=== PATIENT | female | born 1965 | race Caucasian/White ===

== ENCOUNTER 2023-02-14 09:42 | Emergency (ER) | payer OTHER ==
--- NOTE | 2023-02-14 09:50 | ERPHSYRPT ---
- History of Present Illness Time Seen by Provider: 02/14/23 09:50 Source: patient Exam Limitations: no limitations Physician History: This is an overweight 57-year-old white female patient who presents with a right fifth toe that is inflamed and tender after stubbing it 1 week ago. She has tried elevation, ice, Tylenol and ibuprofen medication. She still having the swelling and pain that she rates at a 7 out of 10. She has not seen her primary care provider. Her has seen Dr. Gunn in the past. She may choose to see this pre sales technical consultant. However I did offer her to see Dr. Michael depending on the findings on the x-ray of the right foot. Method of Injury: other (Patient stubbed her toe approximately 1 week ago) Occurred: last week Quality: constant, aching Severity of Pain-Max: moderate Severity of Pain-Current: moderate Lower Extremities Pain: 5th toe: right Modifying Factors: Improves With: movement Associated Symptoms: other (Hurts to put weight on it) Allergies/Adverse Reactions: No Known Drug Allergies Allergy (Unverified 02/14/23 10:06) Home Medications: Lisinopril 10 mg [Zestril 10 MG] 10 mg PO DAILY 02/14/23 [History] Travel Risk - International Travel Have you traveled outside of the country in past 3 weeks: No - Coronavirus Screening Are you exhibiting any of the following symptoms?: No Close contact with a COVID-19 positive Pt in past 14-21 Days: No - Review of Systems Constitutional: No Symptoms Eyes: No Symptoms Ears, Nose, & Throat: No Symptoms Respiratory: No Symptoms Cardiac: No Symptoms Abdominal/Gastrointestinal: No Symptoms Genitourinary Symptoms: No Symptoms Musculoskeletal: Injury (Right fifth toe) Skin: No Symptoms Neurological: No Symptoms Psychological: No Symptoms Endocrine: No Symptoms Hematologic/Lymphatic: No Symptoms Immunological/Allergic: No Symptoms All Other Systems: Reviewed and Negative - Past Medical History Pertinent Past Medical History: Yes - Past Surgical History Past Surgical History: Yes - Nursing Vital Signs Nursing Vital Signs: Initial Vital Signs Pulse Rate 87 02/14/23 10:06 Respiratory Rate 18 02/14/23 10:06 Blood Pressure 133/93 02/14/23 10:06 O2 Sat by Pulse Oximetry 97 02/14/23 10:06 Pain Scale Pain Intensity 8 - Physical Exam General Appearance: no apparent distress, alert, obese Eyes, Ears, Nose, Throat Exam: normal ENT inspection, moist mucous membranes Neck Exam: normal inspection, non-tender, supple, full range of motion Cardiovascular/Respiratory Exam: chest non-tender, no respiratory distress Gastrointestinal/Abdominal Exam: non-tender Back Exam: normal inspection, normal range of motion, No CVA tenderness, No vertebral tenderness Hips Exam: bilateral: non-tender, normal inspection, normal range of motion, no evidence of injury Legs Exam: bilateral leg: non-tender, normal inspection, normal range of motion, no evidence of injury Knees Exam: bilateral knee: non-tender, normal inspection, normal range of motion, no evidence of injury Ankle Exam: bilateral ankle: non-tender, normal inspection, normal range of motion, no evidence of injury Foot Exam: right foot: ecchymosis (Resolvingright fifth toe dorsal aspect), soft tissue tenderness (Right fifth toe), swelling (Right fifth toe), left foot: non-tender, normal inspection, normal range of motion, no evidence of injury Neuro/Tendon Exam: normal sensation, normal motor functions, normal tendon functions, responds to pain, no evidence tendon injury Skin Exam: ecchymosis (As described above) SpO2 Interpretation: normal O2 Delivery: Room Air - Course Nursing assessment & vital signs reviewed: Yes Ordered Tests: Active Orders 24 hr Category Date Time Status FOOT (MINIMUM 3 VIEWS) Stat Exams 02/14/23 10:20 Completed - Progress Progress: unchanged Progress Note: 02/14/23 10:54 This medical issue is 1 of low complexity. Level complexity in the work-up performed is based on review of the patient's past medical history, review of the patient's medication list, review the patient's drug allergy list, history of present illness and physical findings on examination. The work-up in this patient includes x-ray of the right foot. The plan will be to place the patient in a walking boot/shoe. Patient does not want crutches because she does not walk with them well. She will continue using an ice pack to the area 3 times a day. She will also continue with ibuprofen 600 mg orally 3 times a day with food for the next 5 days. We will send remotely, a prescription to her pharmacy for Percocet 5/325. We will also recommend that she follow-up with a pre sales technical consultant for further evaluation management. This will be regardless of whether or not there is a fracture present in her right fifth toe. 02/14/23 11:01 The x-ray of the right foot was interpreted by the radiologist and I reviewed the impression. The patient has a nondisplaced, hairline fracture head of the fifth proximal phalanx. In addition, there is a tiny plantar heel spur. Counseled pt/family regarding: diagnosis, need for follow-up, rad results Medical Desision Making - Diagnostic Testing Diagnostic test were ordered, analyzed, and reviewed by me: Yes Radiological Interpretation: Reviewed by me, Teleradiologist Report - Risk of complications The pt has a mod risk of morbidity or mortality based on: Need for prescription drug management - Departure Departure Disposition: Home Clinical Impression: Fracture of fifth toe, left, closed, Heel spur Condition: Stable Critical Care Time: No Referrals: ELIEZER PERDUE [Primary Care Provider] - Follow up/PCP as directed Additional Instructions: Ice pack to tender area 3 times a day for the next 48 hours. Ibuprofen 600 mg orally with food 3 times a day for the next 5 days. Follow-up with pre sales technical consultant of your choice. Call today to make arrangements for follow-up appointment in the next 3 to 5 days. Take your medication as prescribed. Prescriptions: Oxycodone HCl/Acetaminophen [Percocet 5-325 mg Tablet] 1 each PO Q8H PRN PRN #6 tablet MDD 3 PRN Reason: Moderate To Severe Pain
[2023-02-14 10:10] VITALS: TEMP 97
--- NOTE | 2023-02-14 10:49 | XRAY ---
Indication: 5th toe pain and swelling following injury one week ago. Comparison: None 3 nonweightbearing views right foot demonstrates nondisplaced hairline fracture head 5th proximal phalanx with soft tissue swelling. Incidental tiny plantar heel spur. No other bony, articular, or soft tissue abnormalities.
[2023-02-14 11:37] VITALS: BP 118/81; PULSE 80; RESP 16; O2SAT 97
== END 2023-02-14 11:45 | disposition home or self-care (01) ==
LOC: ED 09:42
DX: S92.514A Nondisplaced fracture of proximal phalanx of right lesser toe(s), initial encounter for closed fracture (principal); W22.8XXA Striking against or struck by other objects, initial encounter; M77.31 Calcaneal spur, right foot; Z79.899 Other long term (current) drug therapy; Z79.891 Long term (current) use of opiate analgesic
CPT/HCPCS: 73630; 99283